=== PATIENT | male | born 1980 | race Caucasian/White ===

== ENCOUNTER 2024-07-03 21:33 | Outpatient (REF) | payer BC, SELFPAY ==
[2024-07-03 21:37] LABS: Abs Immature Grans 0.01 10^3/uL (0.0-0.06); Absolute Basophil Count 0.05 10^3/uL (0.0-0.2); Absolute Eosinophil Count 0.12 10^3/uL (0.0-0.7); Absolute Lymphocyte Count 3.07 10^3/uL (1.2-3.4); Absolute Monocyte Count 0.52 10^3/uL (0.1-0.8); Basophils % 0.6 %; Eosinophils % 1.5 %; HCT 45.4 % (40.0-50.0); HGB 14.4 g/dL (13.5-17.5); Immature Grans % 0.1 %; MCH 27.5 pg (27.0-33.0); MCHC 31.7 % (32.0-36.0); MCV 87 fL (80-95); MPV 10.5 fL (8.0-11.0); Monocytes % 6.4 %; Neutrophils % 53.4 %; Platelet Count 206 10^3/uL (130-400); RBC 5.23 10^6/uL (4.36-5.78); RDW 13.5 % (11.8-14.1); RDW-SD 43.4 fL; WBC 8.07 10^3/uL (4.4-10.8)
[2024-07-03 21:39] LABS: ESR 37 mm/hr (0-15)
[2024-07-03 21:48] LABS: ALT 25 U/L (16-63); AST 21 U/L (15-37); Albumin 4.1 g/dL (3.4-5.0); Alkaline Phosphatase 95 U/L (46-116); Anion Gap 9.8 mmol/L (3-11); BUN 17 mg/dL (7-18); Bilirubin, Total 0.32 mg/dL (0.2-1.0); C-Reactive Protein 0.95 mg/dL (<or=0.5); CO2 28.2 mmol/L (21.0-32.0); CREATININE 1.1 mg/dL (0.70-1.30); Calcium 9.3 mg/dL (8.5-10.1); Chloride 104 mmol/L (98-107); Estimated GFR 83.84 (mL/min/1.73m2); Glucose 92 mg/dL (74-106); Sodium 142 mmol/L (136-145); Total Protein 7.6 g/dL (6.4-8.2)
[2024-07-03 22:05] LABS: Calculated LDL 98 mg/dL (<100); Cholesterol 187 mg/dL (<200); HDL Cholesterol 72 mg/dL (40-60); Triglyceride 85 mg/dL (<150)
[2024-07-03 22:14] LABS: Hemoglobin A1C 5.6 % (<5.7)
[2024-07-04 19:03] LABS: Hepatitis B Surface Ag Negative (Negative)
[2024-07-04 19:42] LABS: Hepatitis C Ab w Rflx HCV PCR Negative (Negative)
[2024-07-04 20:15] LABS: Hepatitis B Surface Ab Negative (See Note)
[2024-07-04 20:57] LABS: HIV-1/2 Ag & Ab Screen Negative (Negative)
[2024-07-06 14:47] LABS: Hepatitis Be Antigen Negative (Negative)
== END 2024-07-03 21:34 | disposition home or self-care (01) ==
LOC: LBN 21:33
PROVIDERS: Nurse Practitioner Family; PCP Nurse Practitioner Family; Visit Provider Nurse Practitioner Family
DX: Z11.59 Encounter for screening for other viral diseases (principal); Z11.4 Encounter for screening for human immunodeficiency virus [HIV]; I10 Essential (primary) hypertension; G47.33 Obstructive sleep apnea (adult) (pediatric); I83.019 Varicose veins of right lower extremity with ulcer of unspecified site; L97.919 Non-pressure chronic ulcer of unspecified part of right lower leg with unspecified severity; I83.93 Asymptomatic varicose veins of bilateral lower extremities; I87.2 Venous insufficiency (chronic) (peripheral); E66.813 Obesity, class 3; E66.01 Morbid (severe) obesity due to excess calories; Z68.41 Body mass index [BMI] 40.0-44.9, adult
CPT/HCPCS: 80053; 80061; 85652; 86706; 86803; 87340; 87389; 83036; 85025; 86140; 87350

== ENCOUNTER 2025-07-08 15:03 | Outpatient (CLI) | payer BC, SELFPAY ==
[2025-07-08 16:43] LABS: Anion Gap 10.2 mmol/L (3-11); BUN 16 mg/dL (9-23); CO2 27.8 mmol/L (20.0-31.0); Calcium 10.1 mg/dL (8.3-10.6); Chloride 105 mmol/L (98-107); Glucose 86 mg/dL (74-106); Potassium 3.8 mmol/L (3.5-5.1); Sodium 143 mmol/L (136-145)
[2025-07-09 10:17] LABS: PSA, Screening 0.9 ng/mL (<=2.5)
== END 2025-07-08 15:04 | disposition home or self-care (01) ==
LOC: LOS 15:07
PROVIDERS: PCP Nurse Practitioner Family; Visit Provider Nurse Practitioner Family
DX: Z00.00 Encounter for general adult medical examination without abnormal findings (principal); Z12.5 Encounter for screening for malignant neoplasm of prostate
CPT/HCPCS: 36415; 80048; 84153